=== PATIENT | male | born 1940 | race Caucasian/White ===

== ENCOUNTER 2021-11-25 08:47 | Outpatient (CLI) | payer MEDICARE, OTHER, SELFPAY ==
--- NOTE | ~2021-11-25 | US_ITS ---
EXAMINATION: US retroperitoneal duplex ltd DATE: 11/25/2021 09:59 INDICATION: Essential hypertension TECHNIQUE: Multiple grayscale, color Doppler, and pulsed Doppler images of the kidneys and renal suzy ahsan were obtained. COMPARISON: None. FINDINGS: The aorta peak systolic velocity is 71 cm/s. The right renal artery peak systolic velocity is 152 cm/ s in the proximal segment, 139 cm/s in the mid segment, and 165 cm/s in the distal segment. The left renal artery peak systolic velocity is 95 cm/s in the proximal segment, 119 cm/s in the mid segment, and 104 cm/s in the distal segment. IMPRESSION: 1. No Doppler evidence of renal artery stenosis. Reviewed, dictated and finalized at location A.
== END 2021-11-25 08:48 | disposition home or self-care (01) ==
PROVIDERS: PCP Physician Assistant Medical; Visit Provider Internal Medicine Nephrology
DX: I10 Essential (primary) hypertension (principal)
CPT/HCPCS: 93976

== ENCOUNTER 2022-02-18 00:20 | Day surgery (SDC) | payer MEDICARE, OTHER, SELFPAY ==
[2022-02-03 13:38] VITALS: BMI 28.4
[2022-02-18 07:58] VITALS: BP 163/82; PULSE 72; RESP 20; TEMP 36.4; O2SAT 97; BMI 28.7
--- NOTE | 2022-02-18 07:59 | WPDANESEPPF ---
Anes - Initial Pre Proc Eval Procedure: Operation Date: 02/18/22 09:15 Proposed Procedures p Screening Colonoscopy - Rohit Yin MD Date/Time: 02/18/22 07:59 Surgeon: Rohit Yin MD Pre Op Diagnosis: Family hx of colon cancer Patient Data Age: 81 Gender: M Height: 1.68 m Weight: 80 kg Allergies Allergy/AdvReac Type Severity Reaction Status Date / Time cetirizine [From [facility]] AdvReac Fatigued Verified 02/18/22 07:56 metformin AdvReac avoid due Verified 02/18/22 07:56 to cKD pseudoephedrine AdvReac Fatigued Verified 02/18/22 07:56 [From [facility]-D] Anesthesia AdvReac Other Uncoded 02/18/22 07:56 Home Medications Medication Instructions Recorded Confirmed Type aspirin 81 mg tablet,delayed 81 mg PO DAILY 10/30/21 02/03/22 History release (Adult Aspirin Regimen) nebivolol 10 mg tablet (Bystolic) 10 mg PO DAILY 10/30/21 02/03/22 History niacin 500 mg tablet 500 mg PO DAILY 10/30/21 02/03/22 History pantoprazole 40 mg tablet,delayed 40 mg PO QHS #90 tabs 11/05/21 02/03/22 Rx release amlodipine 10 mg-valsartan 320 mg 1 tablet PO DAILY #90 tabs 11/27/21 02/03/22 Rx tablet (Exforge) rosuvastatin 20 mg tablet 20 mg PO DAILY #90 tabs 12/19/21 02/03/22 Rx tramadol 50 mg tablet 50 mg PO Q6H PRN pain #30 tabs 12/23/21 02/03/22 Rx semaglutide 0.25 mg or 0.5 mg (2 0.25 mg (0.2 mL) subcut WEEKLY 12/25/21 02/03/22 Rx mg/1.5 mL) subcutaneous pen #1.5 mL injector (Ozempic) sodium,potassium,mag sulfates 17.5 See Rx Instructions PO .COMPLEX 01/03/22 Rx gram-3.13 gram-1.6 gram oral soln #354 mL (Suprep Bowel Prep Kit) alprazolam 0.25 mg tablet 0.25 mg PO BID #60 tabs 01/21/22 02/03/22 Rx glimepiride 1 mg tablet 1 mg PO QAM #90 tabs 01/30/22 02/03/22 Rx Patient hx anesthesia problems: none Family hx anesthesia problems: none Results Review: All pre-operative results and documents have been reviewed as part of the pre-operative evaluation. [facility] Past Medical History Medical History (Updated 12/25/21 @ 10:00 by Leidy Leung PA-C) Anemia Anxiety Anxiety Basal cell carcinoma BPH (benign prostatic hyperplasia) Cholecystectomy planned Chronic kidney disease stage 4 Chronic pain COPD (chronic obstructive pulmonary disease) Diabetes mellitus Diabetes mellitus with nephropathy FH: colon cancer in relative diagnosed at >50 years old GERD (gastroesophageal reflux disease) HTN (hypertension), benign Hypercholesteremia Hypertension Kidney stone Squamous cell carcinoma Social History Social History Smoking packs per day: 2 Smoking cigarettes per day: 40.0 Years smoked: 20 Smoking pack-years: 40.00 Smoking status: Former smoker Tobacco type: cigarettes Smokeless tobacco user: chewing tobacco Smoking end date: 02/29/00 Alcohol intake: never Substance use: never Substance use type: does not use Living arrangements: with family Gender identity (if verbalized by the patient): Male Spiritual care concerns: No Anes - Eval Final PreProcedure Day of Procedure 02/18/22 07:59 Patient weight: overweight Heart: regular rate and rhythm Lungs: clear to auscultation Airway: Mallampati scale class II Neurological: alert and oriented Last oral intake: >/= 8 hours ASA classification: III Emergent: no Anesthetic plan: proceed Anesthesia type and monitoring: general ETT and standard monitoring Results Review: All pre-operative results and documents have been reviewed as part of the pre-operative evaluation. Informed Consent: The patient's anesthetic plan and its attendant risks and benefits were discussed with the patient/family/POA. Questions were solicited and answers provided to the satisfaction of the patient/family/POA.
[2022-02-18] MEDS: LACTATED RINGERS 1,000 ML 150 ML IV CONT (08:20)
[2022-02-18 08:21] LABS: Glucose Point of Care 120 mg/dl (65-105)
--- NOTE | 2022-02-18 08:28 | PM.HPGS ---
History of Present Illness History of Present Illness Consent: Risks, benefits, and alternatives have been discussed and questions answered. Patient agrees to proceed with procedure. Chief complaint: Family hx of colon cancer Narrative: Nick Villalta is a 81 year old male Presents for colonoscopy. Patient's family history is significant that 1 of his brothers had colon cancer. Patient reports last colonoscopy be performed in [address] Lucero. Patient denies abdominal pain. He has had no obvious blood in his stools. Bowel habits are normal. Review of Systems Review of Systems: Review of systems noncontributory. [facility] Past Medical History Medical History (Updated 12/25/21 @ 10:00 by Leidy Leung PA-C) Anemia Anxiety Anxiety Basal cell carcinoma BPH (benign prostatic hyperplasia) Cholecystectomy planned Chronic kidney disease stage 4 Chronic pain COPD (chronic obstructive pulmonary disease) Diabetes mellitus Diabetes mellitus with nephropathy FH: colon cancer in relative diagnosed at >50 years old GERD (gastroesophageal reflux disease) HTN (hypertension), benign Hypercholesteremia Hypertension Kidney stone Squamous cell carcinoma Social History Social History Smoking packs per day: 2 Smoking cigarettes per day: 40.0 Years smoked: 20 Smoking pack-years: 40.00 Smoking status: Former smoker Tobacco type: cigarettes Smokeless tobacco user: chewing tobacco Smoking end date: 02/29/00 Alcohol intake: never Substance use: never Substance use type: does not use Living arrangements: with family Gender identity (if verbalized by the patient): Male Spiritual care concerns: No Meds Home Medications and Allergies Home Medications Medication Instructions Recorded Confirmed Type aspirin 81 mg tablet,delayed 81 mg PO DAILY 10/30/21 02/03/22 History release (Adult Aspirin Regimen) nebivolol 10 mg tablet (Bystolic) 10 mg PO DAILY 10/30/21 02/03/22 History niacin 500 mg tablet 500 mg PO DAILY 10/30/21 02/03/22 History pantoprazole 40 mg tablet,delayed 40 mg PO QHS #90 tabs 11/05/21 02/03/22 Rx release amlodipine 10 mg-valsartan 320 mg 1 tablet PO DAILY #90 tabs 11/27/21 02/03/22 Rx tablet (Exforge) rosuvastatin 20 mg tablet 20 mg PO DAILY #90 tabs 12/19/21 02/03/22 Rx tramadol 50 mg tablet 50 mg PO Q6H PRN pain #30 tabs 12/23/21 02/03/22 Rx semaglutide 0.25 mg or 0.5 mg (2 0.25 mg (0.2 mL) subcut WEEKLY 12/25/21 02/03/22 Rx mg/1.5 mL) subcutaneous pen #1.5 mL injector (Ozempic) sodium,potassium,mag sulfates 17.5 See Rx Instructions PO .COMPLEX 01/03/22 Rx gram-3.13 gram-1.6 gram oral soln #354 mL (Suprep Bowel Prep Kit) alprazolam 0.25 mg tablet 0.25 mg PO BID #60 tabs 01/21/22 02/03/22 Rx glimepiride 1 mg tablet 1 mg PO QAM #90 tabs 01/30/22 02/03/22 Rx Allergies Allergy/AdvReac Type Severity Reaction Status Date / Time cetirizine [From [facility]-D] AdvReac Fatigued Verified 02/18/22 07:56 metformin AdvReac avoid due Verified 02/18/22 07:56 to cKD pseudoephedrine AdvReac Fatigued Verified 02/18/22 07:56 [From [facility]-D] Anesthesia AdvReac Other Uncoded 02/18/22 07:56 Vital Signs Vital Signs - 24 hr 02/18/22 07:58 Temperature 97.5 F L Pulse Rate 72 Respiratory Rate 20 Blood Pressure 163/82 H Pulse Oximetry 97 Oxygen Delivery Room Air Exam Narrative: Physical exam reveals patient be alert. Vital signs stable. HEENT exam is unremarkable. Patient is anicteric. Lungs are clear to auscultation and percussion. Heart is without murmur or extra sounds. Abdominal exam bowel sounds are present soft nontender with no hepatosplenomegaly. Digital external rectal exam is normal. Assessment and Plan Assessment and plan (1) FH: colon cancer in relative diagnosed at >50 years old: Code(s): Z80.0 - Family history of malignant neoplasm of digestive organs Status: A
[2022-02-18 09:41] VITALS: BP 105/52; PULSE 61; RESP 19; O2SAT 97
[2022-02-18 09:51] VITALS: BP 163/83; PULSE 61; RESP 20; O2SAT 97
[2022-02-18 10:01] VITALS: BP 145/52; PULSE 58; RESP 22; O2SAT 97
== END 2022-02-18 10:07 | disposition home or self-care (01) ==
PROVIDERS: PCP Physician Assistant Medical; Visit Provider Internal Medicine Gastroenterology
PROC: 0DJD8ZZ Inspection of Lower Intestinal Tract, Via Natural or Artificial Opening Endoscopic (ICD-10-PCS; CPT 45378; principal; 2022-02-18 09:15)
DX: Z12.11 Encounter for screening for malignant neoplasm of colon (principal); K63.5 Polyp of colon; I12.9 Hypertensive chronic kidney disease with stage 1 through stage 4 chronic kidney disease, or unspecified chronic kidney disease; E11.22 Type 2 diabetes mellitus with diabetic chronic kidney disease; N18.4 Chronic kidney disease, stage 4 (severe); E11.21 Type 2 diabetes mellitus with diabetic nephropathy; K21.9 Gastro-esophageal reflux disease without esophagitis; E78.00 Pure hypercholesterolemia, unspecified; N40.0 Benign prostatic hyperplasia without lower urinary tract symptoms; F41.9 Anxiety disorder, unspecified; Z80.0 Family history of malignant neoplasm of digestive organs; Z79.82 Long term (current) use of aspirin; Z79.899 Other long term (current) drug therapy; Z79.84 Long term (current) use of oral hypoglycemic drugs; Z87.891 Personal history of nicotine dependence
CPT/HCPCS: 45380; 82948; 88305; J2704; J7120